=== PATIENT | male | born 1950 | race Caucasian/White ===

== ENCOUNTER 2023-04-24 08:24 | Outpatient (CLI) | payer OTHER, SELFPAY | END 2023-04-24 08:25 | disposition home or self-care (01) | PROVIDERS: PCP Internal Medicine; Visit Provider Internal Medicine | DX: Z00.00 Encounter for general adult medical examination without abnormal findings (principal); E78.5 Hyperlipidemia, unspecified; R30.0 Dysuria; Z12.5 Encounter for screening for malignant neoplasm of prostate | CPT/HCPCS: 80053; 80061; 84153 ==

== ENCOUNTER 2024-05-27 08:29 | Outpatient (CLI) | payer OTHER, SELFPAY | END 2024-05-27 08:30 | disposition home or self-care (01) | PROVIDERS: PCP Internal Medicine; Visit Provider Family Medicine | DX: Z13.1 Encounter for screening for diabetes mellitus (principal); E78.5 Hyperlipidemia, unspecified; R97.20 Elevated prostate specific antigen [PSA] | CPT/HCPCS: 80048; 80061; 84153 ==